=== PATIENT | female | born 1925 | race Caucasian/White ===

== ENCOUNTER → 2017-04-30 09:50 | Outpatient (CLI) | payer MEDICARE, OTHER ==
[2014-09-20 14:25] VITALS: BMI 24.0
[~2017-04-30 09:50] MED LIST: AVAPRO300 MG PO; BAYER CHEWABLE81 MG PO; CEFUROXIME250 MG PO; COLACE100 MG PO; HYDRALAZINE HCL50 MG PO; HYDROCHLOROTHIA50 MG PO; IBUPROFEN400 MG PO; K-PHOS ORIGINA500 MG PO; LASIX20 MG PO; LOPRESSOR25 MG PO; MAG-OX 400 MG400 MG PO; MEDROL4 MG PO; MELATONIN 3 MG1 TAB PO; NORVASC10 MG PO; NORVASC5 MG PO; NYSTATIN1 PWD TOPICAL; PLAVIX75 MG PO; VITAMIN D2000 UNIT PO
--- NOTE | 2017-05-05 10:07 | EC ---
PATIENT:YUDELKA SAENZ DATE OF SERVICE: 04/30/17 SEX: F MEDICAL RECORD: [id number] DATE OF : [birth year] LOCATION:[facility] AGE OF PATIENT: 89 ADMISSION DATE: 04/30/17 REFERRING PHYSICIAN: INTERPRETING PHYSICIAN: ROBERTO CARLOS AGUIRRE MD ECHOCARDIOGRAM REPORT ECHO CHARGES 4 ECHO COMPLETE CLINICAL DIAGNOSIS: BRADYCARDIA ECHOCARDIOGRAPHIC MEASUREMENTS (adult normal given) AC root (d.<3.7cm) 2.8 cm LV Septum d (<1.2 cm> 1.5 cm Valve Excursion 1.5 cm LV Septum (systole) 2.0 cm Left Atria (s.<4.0cm> 3.4 cm LVPW d(<1.2cm) 1.2 cm RV (d.<2.3cm) 2.8 cm LVPW (sytole) 2.1 cm LV diastole(<5.6CM) 4.8 cm MV E-F(>70mm/sec) cm LV systole 2.1 cm LVOT Diameter 1.6 cm MV exc.(>10mm) cm Est.ejection fraction (50-75%) % Pericardial Effusion N DOPPLER: LVIT cm/sec A 57.0 cm/sec E 73.0 cm/sec LA cm/sec RVSP 43.4 mmHg LVOT 126 cm/sec AOP1/2T m/s Asc. Ao 142 cm/sec RVOT 57.0 cm/sec RA cm/sec PA 105 cm/sec AV Gradient Peak 8.1 mmHg AV Mean 3.5 mmHg AV Area 1.9 cm MV Gradient Peak 3.7 mmHg MV Mean 1.0 mmHg MV Area cm COMMENTS: Boiler Plant Worker: Marilee HOPKINSOE Cotton Opener: 4 Dr. Aguirre TAPE# PACS DATE OF SERVICE: 04/30/2017 PROCEDURE: Transthoracic echocardiogram. FINDINGS: 1. Left ventricle has moderate concentric left ventricular hypertrophy with inflow characteristics that had pseudonormalizing pattern. 2. The left atrium is normal size, normal function. 3. The right ventricle is upper limits of normal with mild right ventricular hypertrophy. ECHOCARDIOGRAM REPORT [id number] YUDELKA SAENZ 4. The aortic valve has mild sclerosis, mild aortic insufficiency without any evidence of significant stenosis. 5. The tricuspid valve has moderate tricuspid regurgitation with mild elevations in right ventricular systolic pressure of 40-45 mmHg. 6. The right atrium is normal size, normal function. 7. The pulmonic valve has mild pulmonic insufficiency. 8. The pericardium is normal. CONCLUSIONS: Evidence of hypertensive heart disease with mild increases in pulmonary pressures and moderate tricuspid regurgitation. TRANSINT:[id number] Voice Confirmation ID: [id number] DOCUMENT ID: [id number] ROBERTO CARLOS AGUIRRE MD at 1007 CC: [id number] DICTATION DATE: 05/03/17937 BREAD BAKER: 05/03/17 1113 DEP CLI 04/30/17 [facility] [address] [place] [address]
== END | disposition home or self-care (01) ==
LOC: D.ECHO 09:50
DX: I70.1 Atherosclerosis of renal artery (principal)

== ENCOUNTER 2017-05-17 22:43 | Inpatient (IN) | payer MEDICARE, OTHER ==
[~2017-05-17] VITALS: Ht 162.6 cm; Wt 61.4 kg
[~2017-05-17 22:43] MED LIST changes: -CEFUROXIME250 MG PO; -HYDRALAZINE HCL50 MG PO; -HYDROCHLOROTHIA50 MG PO; -NORVASC5 MG PO; -PLAVIX75 MG PO
[2017-05-17 23:07] LABS: BASOPHILS 0.1 % (0-2); EOSINOPHILS 1.4 % (0-7); HEMATOCRIT 47.6 % (36.0-48.0); HEMOGLOBIN 16.2 g/dL (12-16); IMMATURE GRANULOCYTES 0.2 % (0-5); LYMPHOCYTES 16.2 % (15-50); MCH 31.1 pg (26.0-34.0); MCV 91.4 fL (80.0-100.0); MONOCYTES 11.1 % (2-11); PLATELET COUNT 601 10x3/uL (130-400); RBC 5.21 10x6/uL (4.00-5.40); RDW 15.3 % (11.5-14.5); WBC 14.2 10x3/uL (4.8-10.8)
[2017-05-17 23:33] LABS: APPEARANCE CLEAR (CLEAR); BILIRUBIN NEGATIVE (NEGATIVE); COLOR STRAW (YELLOW); GLUCOSE NEGATIVE (NEGATIVE); KETONE NEGATIVE (NEGATIVE); NITRITE NEGATIVE (NEGATIVE); PROTEIN TRACE mg/dL (NEGATIVE); UROBILINOGEN NORMAL (NORMAL)
[2017-05-17 23:34] LABS: ALBUMIN 3.8 g/dL (3.4-5.0); ALKALINE PHOSPHATASE 45 U/L (46-116); ALT (SGPT) 16 U/L (10-68); CALC OSMOLALITY 289 mosm/kg (275-300); CALCIUM 9.6 mg/dL (8.5-10.1); CARBON DIOXIDE 25.6 mmol/L (21.0-32.0); CHLORIDE - SERUM 101 mmol/L (98-107); CREATININE - SERUM 1.4 mg/dL (0.6-1.3); GLUCOSE 144 mg/dL (74-106); POTASSIUM - SERUM 3.2 mmol/L (3.5-5.1); PROTEIN - SERUM 7.4 g/dL (6.4-8.2); SODIUM 138 mmol/L (136-145); UREA NITROGEN 42 mg/dL (7-18); eGFR NON AFRICAN AMERICAN 38 mL/min (90-120)
[2017-05-17 23:34] LABS: BACTERIA MODERATE /hpf (NONE SEEN); EPITHELIAL CELLS 0-5 /hpf (0-5); RED CELLS - URINE NONE SEEN /hpf (0-5); WHITE CELLS - URINE 0-5 /hpf (0-5)
[2017-05-17 23:42] LABS: CREATINE KINASE 76 UL (21-215); PRO BNP 646 pg/mL (0-450); TROPONIN-I < 0.017 ng/mL (0.000-0.060)
[2017-05-18 01:32] LABS: CKMB 1.3 U/L (0.0-3.6); CREATINE KINASE 77 UL (21-215); TROPONIN-I < 0.017 ng/mL (0.000-0.060)
--- NOTE | 2017-05-18 02:34 | NUR ---
REC'D TO ROOM 2210 FROM ER DEPT PER WC AN 89 Y/O W/FE PER SERVICES DR. KERNS WITH DX TIA/CVA. NKDA ALERT ORIENTED X4 CERDA SLIGHT WEAKNESS ALL OVER. SPEECH CLEAR. ASSESSMENT PER ADMIT PACKET.
[2017-05-18] MEDS ORDERED: NORVASC5 MG PO (03:19)
[2017-05-18] MEDS ORDERED: HYDROCHLOROTHIA50 MG PO (03:21)
[2017-05-18] MEDS ORDERED: HYDRALAZINE HCL50 MG PO (03:29)
[2017-05-18 03:39] VITALS: BP 137/71; Ht 162.6 cm; Wt 61.4 kg
[2017-05-18 04:00] VITALS: BP 156/73
--- NOTE | 2017-05-18 04:36 | NUR ---
EYES CLOSED RESPIRATIONS WITH EASE AND UNLABORED. GRANDDAUGHTER AT BEDSIDE.
--- NOTE | 2017-05-18 06:08 | NUR ---
EYES CLOSED RESPIRATIONS WITH EASE AND UNLABORED.
[2017-05-18 07:32] LABS: CKMB 1.5 U/L (0.0-3.6); CREATINE KINASE 63 UL (21-215); TROPONIN-I 0.018 ng/mL (0.000-0.060)
--- NOTE | 2017-05-18 08:10 | NUR ---
THE OFFICE MACHINE TECHNICIAN TECH SAID THERE ARE NOT ANY TELEMETRY MONITORS AVAILABLE. HERE ON UNIT. NOTIFIED HIM THAT THERE ARE NOT ANY MONITORS AVAILABLE, HE STATED "I PUT THE ORDER IN. THEY ARE IN THE HOSPITAL, THEY SHOULD BE ON TELEMETRY."
--- NOTE | 2017-05-18 08:16 | NUR ---
NOTIFIED NURSE CIGARETTE MACHINES MECHANIC OF NEED FOR TELEMETRY.
[2017-05-18 09:40] VITALS: BP 163/72
[2017-05-18 14:20] LABS: AMYLASE - SERUM 96 U/L (25-115); CKMB 1.3 U/L (0.0-3.6); CREATINE KINASE 63 UL (21-215); LIPASE 331 U/L (73-393)
[2017-05-18 14:21] LABS: TROPONIN-I < 0.017 ng/mL (0.000-0.060)
[2017-05-18 15:27] VITALS: BP 127/58
--- NOTE | 2017-05-18 16:15 | NUR ---
TELEMETRY ON PATIENT.
[2017-05-18 17:46] VITALS: BP 128/56
[2017-05-18 20:00] VITALS: BP 152/67
[2017-05-19 04:00] VITALS: BP 133/60
[2017-05-19 05:10] LABS: BASOPHILS 0.2 % (0-2); EOSINOPHILS 3.2 % (0-7); HEMATOCRIT 46.8 % (36.0-48.0); HEMOGLOBIN 15.6 g/dL (12-16); IMMATURE GRANULOCYTES 0.2 % (0-5); MCH 31.1 pg (26.0-34.0); MCHC 33.3 g/dL (31.0-37.0); MCV 93.2 fL (80.0-100.0); MEAN PLATELET VOLUME 10.3 fL (7.4-10.4); MONOCYTES 15.3 % (2-11); NEUTROPHILS 62.1 % (40-80); PLATELET COUNT 588 10x3/uL (130-400); RBC 5.02 10x6/uL (4.00-5.40); RDW 15.7 % (11.5-14.5)
[2017-05-19 05:14] LABS: WBC 9.4 10x3/uL (4.8-10.8)
[2017-05-19 05:24] LABS: ANION GAP 13.6 mmol/L (8-16); CALCIUM 8.7 mg/dL (8.5-10.1); CARBON DIOXIDE 24.5 mmol/L (21.0-32.0); CREATININE - SERUM 1.5 mg/dL (0.6-1.3); POTASSIUM - SERUM 3.1 mmol/L (3.5-5.1)
[2017-05-19] MEDS ORDERED: CEFUROXIME250 MG PO (07:28)
[2017-05-19] MEDS ORDERED: PLAVIX75 MG PO (07:28)
--- NOTE | 2017-05-19 07:30 | HP ---
PATIENT: YUDELKA SAENZ MEDICAL RECORD: [id number] ACCOUNT: [id number] LOCATION:[facility] : [birth year] ADMISSION DATE: 05/18/17 HISTORY AND PHYSICAL EXAMINATION HISTORY OF PRESENT ILLNESS: An 89-year-old female presented to the Emergency Room last night, cephalgia, significantly elevated blood pressure. PAST MEDICAL HISTORY: Significant for hypertension, chronic kidney disease. CURRENT MEDICATIONS: Hydralazine 50 mg t.i.d., Avapro 300 mg daily, Lopressor 25 mg b.i.d., amlodipine 5 mg daily, aspirin 81 mg daily, hydrochlorothiazide 50 mg daily. REVIEW OF SYSTEMS: GENERAL: No acute change in weight or appetite. HEENT: No cephalgia, visual changes, tinnitus, epistaxis, or dysphagia. CARDIOVASCULAR: Denies chest pain or palpitations. Does admit cephalgia with significantly elevated blood pressure. PULMONARY: Denies hemoptysis, denies night sweats. GASTROINTESTINAL: Denies hematemesis, hematochezia, or melena. GENITOURINARY: Admits frequency, denies dysuria. MUSCULOSKELETAL: No acute changes. ENDOCRINE: Denies polyuria, polydipsia, or polyphagia. PHYSICAL EXAMINATION: VITAL SIGNS: Temperature 98.8, heart rate 70, respirations 18, blood pressure 156/73, O2 sats 96% room air. GENERAL: Alert and oriented, no present distress. HEENT: Head is normocephalic, atraumatic. Eyes: Pupils are equally round and reactive to light and accommodation. Extraocular muscles intact. Conjunctiva was not injected. Ears: Canals patent, TMs are intact. Nose: Nares patent without drainage. Throat: No erythema, no exudates. NECK: Supple. No lymphadenopathy, no JVD. HEART: Regular rate and rhythm. No S3, S4, no rub. LUNGS: Clear to auscultation bilaterally. Breathing is nonlabored. ABDOMEN: Soft, nontender. Bowel sounds all 4 quadrants. EXTREMITIES: Present times 4, no edema. NEUROLOGIC: No focal deficits. Cranial nerves II-XII grossly intact. LABORATORY DATA AND DIAGNOSTIC DATA: Echocardiogram done by Dr. Gann in April 30, 2017 showed evidence of hypertensive heart disease with mild increases in pulmonary pressures, moderate tricuspid regurg, ejection fraction 40% to 45%. CT of the head showed chronic small vessel disease, no acute changes. EKG on admission, sinus rhythm, rate of 72, no significant ST-T changes, blood pressure on admission, systolic was running in the 170s. Cardiac enzymes are negative. CBC: White count elevated at 14,200, hemoglobin 16.2, hematocrit 47.6, platelets 601. Chemistry shows a sodium of 138, potassium 3.2, chloride 101, bicarbonate 25.6, creatinine 1.4. ProBNP minimally elevated at 646. Urinalysis, straw-colored, clear, 1+ leukocyte esterase, moderate bacteria. Chest x-ray, no significant changes, no acute changes. ASSESSMENT AND PLAN: 1. Hypertensive urgency. Home medications were restarted with outpatient cardiac workup in process and acute symptoms. We will consult her inside sales consultant, HISTORY AND PHYSICAL [id number] YUDELKA SAEZN Dr., place on telemetry. 2. Urinary tract infection with leukocytosis, Rocephin 1 gram daily. Again, urine culture pending. 3. Thrombocytosis, aspirin 81 mg daily, monitor supportive care. TRANSINT:[id number] Voice Confirmation ID: [id number] DOCUMENT ID: [id number] RICH KERNS DO at 0730 CC: [id number] DICTATION DATE: 05/18/17822 BENCH JEWELER: 05/18/17 1017 [place] [address]
--- NOTE | 2017-05-19 08:00 | NUR ---
ASSESSMENT COMPLETE. SL TO L WRIST. COMPUTER CUSTOMER SUPPORT SPECIALIST SHOWING SR 62 PER TECH. BED ALARM IN USE. FAMILY AT BEDSIDE. DENIES ANY NEEDS AT PRESENT.
[2017-05-19 08:49] VITALS: BP 157/62
--- NOTE | 2017-05-19 09:33 | NUR ---
Patient Name: YUDELKA SAENZ Admission Status: ER Accout number: [id number] Admission Date: 05-18-2017 : 1925 Admission Diagnosis: Attending: RICH KERNS Current LOS: 1 Anticipated DC Date: Planned Disposition: Home Health Service Primary Insurance: MEDICARE A & B Discharge Planning Comments: CM met with patient to assess with discharge planning needs. Patient is independent with her ADL's and plans to return home. Her daughter (Diamante) will be the one to drive home. She has 4 steps to enter in her home. She has a cane and a walker at home, but does not use them. wanted her set up with , Patient picked [facility] , MARTHA signed and placed in chart. Referral sent to [facility] . CM will continue to follow and assist with discharge planning needs. PCP: [facility] [place] Diamante (daughter) [phone] Hand Iii Cutter: Giovana Cunha * Is the patient Alert and Oriented? Yes 0 * How many steps to enter\exit or inside your home? 4 0 * PCP [facility] 0 * Pharmacy [facility] [place] 0 * Preadmission Environment Home Alone 0 * ADLs Independent 0 * Equipment Rolling Walker 0 * List name and contact numbers for known caregivers / representatives who currently or will assist patient after discharge: DIAMANTE VILLAR (DAUGHTER) 0 * Community resources currently utilized None 0 * Additional services required to return to the preadmission environment? Yes 0 * Can the patient safely return to the preadmission environment? Yes 0 * Has this patient been hospitalized within the prior 30 days at any hospital? No 0 Grand Total: 0
--- NOTE | 2017-05-19 11:00 | NUR ---
SL REMOVED. CATHETER TIP INTACT. DISCHARGE TEACHING GIVEN TO PATIENT AND FAMILY. SCRIPTS SENT TO [facility] E[facility].
--- NOTE | 2017-05-19 11:10 | NUR ---
DC'D HOME WITH FAMILY. ESCORTED TO VEHICLE BY VOLUNTEER VIA WC WITH BELONGINGS.
--- NOTE | 2017-05-20 07:41 | DS ---
PATIENT:YUDELKA SAENZ :[birth year] MEDICAL RECORD: [id number] DISCHARGE SUMMARY ADMISSION DATE: 05/18/17 DISCHARGE DATE: 05/19/17 DATE OF ADMISSION: 05/18/2017 DATE OF DISCHARGE: 05/19/2017 ADMISSION DIAGNOSES: Hypertensive urgency, UTI with leukocytosis, and thrombocytosis. DISCHARGE DIAGNOSES: Hypertensive urgency, UTI, and thrombocytosis. HOSPITAL COURSE: The patient had an uneventful hospital course, was admitted through the Emergency Room with cephalgia, blood pressures in the 170s systolic, white count elevated at 14,200. She was afebrile, had leukocytosis, glucosuria, and bacteriuria. Urine cultures pending. The patient was started on IV Rocephin. White count normalized and symptoms resolved. Blood pressure medications adjusted. The patient is anxious to go home, had no significant EKG changes, had a negative CT of her head, has no neurological symptoms, is discharged to home with home health. DISCHARGE MEDICATIONS: Per med rec. PHYSICAL EXAMINATION: VITAL SIGNS ON DISCHARGE: Temperature 98.1, blood pressure 152/67 and has been running in the high 120s, O2 sats 96% on room air, heart rate 70, and respirations 18. We will follow up in the clinic in 10 days. Home health will monitor blood pressure, verify compliance with medications. CBC on discharge, white count 9.4, hemoglobin 15.6, hematocrit 46.8, platelets 588. As per recommendations, we will add Plavix to daily regimen. We will recheck in the clinic in 10 days and as needed. PROCEDURES: Echocardiogram, no significant abnormalities. Discussed plan with the patient and family, agree with discharge with home health. TRANSINT:[id number] Voice Confirmation ID: [id number] DOCUMENT ID: [id number] RICH KERNS DO at 0741 CC: [id number] DICTATION DATE: 05/19/17 0736 WILDLIFE CONTROL OPERATOR: 05/19/17 1347 DIS IN 05/19/17 [place] [id number] [place] [id number]
--- NOTE | 2017-05-24 13:30 | EC ---
PATIENT:YUDELKA SAENZ DATE OF SERVICE: 05/18/17 SEX: F MEDICAL RECORD: [id number] DATE OF : [birth year] LOCATION:[facility] AGE OF PATIENT: 89 ADMISSION DATE: 05/18/17 REFERRING PHYSICIAN: INTERPRETING PHYSICIAN: KARTHIKEYAN BARROW MD ECHOCARDIOGRAM REPORT ECHO CHARGES 5 ECHO LIMITED CLINICAL DIAGNOSIS: DIZZINESS HX OF HTN ECHOCARDIOGRAPHIC MEASUREMENTS (adult normal given) AC root (d.<3.7cm) 3.0 cm LV Septum d (<1.2 cm> 1.3 cm Valve Excursion 1.4 cm LV Septum (systole) 1.7 cm Left Atria (s.<4.0cm> 4.1 cm LVPW d(<1.2cm) 1.4 cm RV (d.<2.3cm) 3.9 cm LVPW (sytole) 1.8 cm LV diastole(<5.6CM) 4.3 cm MV E-F(>70mm/sec) cm LV systole 2.2 cm LVOT Diameter cm MV exc.(>10mm) cm Est.ejection fraction (50-75%) % Pericardial Effusion N DOPPLER: LVIT cm/sec A cm/sec E cm/sec LA cm/sec RVSP 39 mmHg LVOT cm/sec AOP1/2T m/s Asc. Ao cm/sec RVOT cm/sec RA cm/sec PA cm/sec AV Gradient Peak mmHg AV Mean mmHg AV Area cm MV Gradient Peak mmHg MV Mean mmHg MV Area cm COMMENTS: Network Firewall Engineer: Paulo TSAI Gasket Winder: 3 Dr. Sahni TAPE# PACS DATE OF SERVICE: 05/18/2017 This is a limited 2D color flow. LVH is present. LV internal dimensions is normal. Wall motion is normal. EF is greater than 55%. Aortic valve is tricuspid with adequate excursion. Left atrium is upper limits of normal, 4.9 cm. Mitral valve, no prolapse, no more than mild MR. Right-sided chamber appeared grossly normal, mild MR, no evidence of thrombus in all 4 cardiac chambers. TRANSINT:[id number] Voice Confirmation ID: [id number] DOCUMENT ID: [id number] ECHOCARDIOGRAM REPORT [id number] DAYNAYUDELKA ROTHMAN KARTHIKEYAN BARROW MD at 1330 CC: [id number] DICTATION DATE: 05/18/17 1615 ENGINEERING SPECIALIST: 05/18/17 1758 DIS IN 05/19/17 [facility] [address] [place] [id number]
== END 2017-05-19 11:10 | disposition home health service (06) | DRG 690 ==
LOC: D.ER 22:43 → D.MS 05-18 01:14 → OBSVTIME 05-18 01:14 → D.MS 05-18 01:14
PROVIDERS: Family Medicine; ADMIT Family Medicine
DX: N39.0 Urinary tract infection, site not specified (principal); I16.0 Hypertensive urgency; I13.10 Hypertensive heart and chronic kidney disease without heart failure, with stage 1 through stage 4 chronic kidney disease, or unspecified chronic kidney disease; N18.9 Chronic kidney disease, unspecified; D47.3 Essential (hemorrhagic) thrombocythemia; R53.1 Weakness; I07.1 Rheumatic tricuspid insufficiency